=== PATIENT | male | born 1985 | race African-American/Black ===

== ENCOUNTER 2017-07-27 05:15 | Emergency (ER) | payer OTHER ==
[2017-07-27 05:26] VITALS: BP 129/95; PULSE 100; RESP 22; TEMP 98.9; O2SAT 99
[2017-07-27] MEDS ORDERED: ACETAMINOPHEN/CODEINE 300 MG/30 MG TAB PO ONE (05:45)
--- NOTE | 2017-07-27 05:49 | PD ---
HPI Chief Complaint: Psychiatric Symptoms Time Seen by Provider: 05:23 Travel History International Travel<30 days: No Contact w/Intl Traveler<30days: No History of Present Illness HPI Patient is a 31-year-old male presenting to emergency department under Hernandez act for psychiatric evaluation. Patient was transferred from [facility] in [place]. Patient was allegedly making suicidal statements. He was apparently requesting medications to help with the voices at [facility]. Historically patient was on Abilify and Remeron per his report. He denies any suicidal homicidal ideations. He reports that he is been here from [place] for the last 60 days. Patient thinks he was wrongly placed under a Hernandez act. He reports that he went there because of chest pain. He has no complaints of pain at this time. [facility] Past Medical History Psychiatric: Yes Social History Tobacco Use: Yes Allergies-Medications (Allergen,Severity, Reaction): Coded Allergies: No Known Allergies (Unverified , 07/27/17) Reported Meds & Prescriptions Reported Meds & Active Scripts Active No Active Prescriptions or Reported Medications Review of Systems Except as stated in HPI: all other systems reviewed are Neg Psychiatric: No: Suicidal Ideations, Homicidal Ideation Physical Exam Narrative GENERAL: Well-developed, well-nourished, alert -Niuean male. Presenting in no acute distress. SKIN: Warm and dry. HEAD: Atraumatic. Normocephalic. EYES: Pupils equal and round. No scleral icterus. No injection or drainage. ENT: No nasal bleeding or discharge. Mucous membranes pink and moist. NECK: Trachea midline. No JVD. CARDIOVASCULAR: Regular rate and rhythm. RESPIRATORY: No accessory muscle use. Clear to auscultation. Breath sounds equal bilaterally. GASTROINTESTINAL: Abdomen soft, non-tender, nondistended. Hepatic and splenic margins not palpable. MUSCULOSKELETAL: Extremities without clubbing, cyanosis, or edema. No obvious deformities. NEUROLOGICAL: Awake and alert. No obvious cranial nerve deficits. Motor grossly within normal limits. Five out of 5 muscle strength in the arms and legs. Normal speech. PSYCHIATRIC: Somewhat agitated mood and affect; insight and judgment normal. Data Data Last Documented VS Vital Signs Date Time Temp Pulse Resp B/P (MAP) Pulse Ox O2 Delivery O2 Flow Rate FiO2 07/27/17 05:26 98.9 100 22 129/95 (106) 99 Room Air Orders Orders Psych Screen (07/27/17 05:22) Acetamin-Codeine 300-30 Mg (Tylenol-Code (07/27/17 05:45) MDM Medical Decision Making Medical Screen Exam Complete: Yes Emergency Medical Condition: Yes Medical Record Reviewed: Yes Interpretation(s) Vital Signs Date Time Temp Pulse Resp B/P (MAP) Pulse Ox O2 Delivery O2 Flow Rate FiO2 07/27/17 05:26 98.9 100 22 129/95 (106) 99 Room Air Differential Diagnosis Psychosis versus mood disorder versus substance abuse versus schizophrenia versus other Narrative Course Patient is well-appearing 31-year-old male presenting to the emergency department under a Hernandez act for psychiatric evaluation. Patient's vital signs are stable, medical records reviewed. Patient was agitated on arrival, secondary to feeling as if he was wrongly Hernandez acted. Discussed process with patient. Was able to verbally de-escalate the situation. Patient was calm and cooperative. He requested something to drink. He was offered Gatorade and accepted. He requested something for pain in his wrists, Tylenol 3 was ordered. Patient is medically cleared for psychiatric evaluation. Diagnosis Primary Impression: Medical clearance for psychiatric admission Scripts No Active Prescriptions or Reported Meds Condition: Stable Tiffanie Mackenzie July 27, 2017 05:49
[2017-07-27] MEDS ORDERED: REME15TA PO (08:04)
[2017-07-27] MEDS ORDERED: ARIP2 PO (08:04)
--- NOTE | 2017-07-27 08:24 | PD ---
Physical Exam Time Seen by Provider: 08:[address] Holder has evaluated the patient, lifted the Hernandez act and cleared the patient for discharge. Data Data Last Documented VS Vital Signs Date Time Temp Pulse Resp B/P (MAP) Pulse Ox O2 Delivery O2 Flow Rate FiO2 07/27/17 05:26 98.9 100 22 129/95 (106) 99 Room Air Orders Orders Psych Screen (07/27/17 05:22) Acetamin-Codeine 300-30 Mg (Tylenol-Code (07/27/17 05:45) Diet Regular Basic (07/27/17 Breakfast) Diet Regular Basic (07/27/17 Lunch) MDM Supervised Visit with JAGRUTI: No Narrative Course Dr. Holder has evaluated the patient, lifted the Hernandez act and cleared the patient for discharge. Patient contracts safety. Denies suicidal or homicidal ideations. Patient will be provided community resource packet to [facility] for follow-up. Has friends and family for support. Patient was medically cleared by alternate provider prior to psych screening. Patient has been evaluated by psychiatry and and is now cleared for discharge. Diagnosis Primary Impression: Unspecified psychosis Referrals: [facility] (Out patient) [facility] Primary Care Physician Psychiatrist Guera VELASQUEZ Behavior[facility] Patient Instructions: Brief Psychotic Disorder (ED), General Instructions, Mood Disorders (ED) Additional Instruction: Contract safety to your self and others Follow-up with psychiatry Follow-up with primary care provider Follow-up with Lincoln Henson Return to the emergency department immediately with worsening of symptoms Med/Other Pt SpecificInfo: No Change to Meds, No Meds Exist/No RX given Disposition: 01 DISCHARGE HOME Condition: Stable Aiyana Vargas July 27, 2017 08:24
--- NOTE | 2017-07-27 10:56 | PD.PSY.CON ---
Provisional Diagnosis Admission Date [place] I. Alcohol-induced mood disorder, alcohol use disorder, history of depression [place] II. 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 No significant medical he History of Present Illness Service Psychiatry Consult Requested By ER Reason for Consult Patient is under hernandez at Primary Care Physician Unknown HPI The patient was seen this morning at 7 AM The patient is a 31-year-old -Bulgarian man, domiciled in [place], visiting family [place], single, unemployed, with self-reported psychiatric history of depression, 2 previous psychiatric hospitalizations, no previous suicide attempts, the patient using Abilify 15 mg and Remeron 15 mg prescribed by private psychiatrist in [place], no significant medical history, presenting to emergency department under Hernandez act for psychiatric evaluation. Patient was transferred from [facility] in [place]. Patient was allegedly making suicidal statements. He was apparently requesting medications to help with the voices at [facility]. On psychiatric evaluation the patient is irritable , requesting to be discharged. Patient says that he has a court hearing tomorrow and he does want to miss it. He reports that he was having chest pain he was requesting medication for pain, and he mentioned that he wanted to in the context of acute pain. He also reports that he was drunk. At this moment the patient denies suicidal enemas ideation, he denies visual and auditory hallucinations. Is fully oriented 3, clinically sober Review of Systems Constitutional: DENIES: Diaphoretic episodes, Fatigue, Fever, Weight gain, Weight loss, Chills, Dizziness, Change in appetite, Night Sweats Endocrine: DENIES: Heat/cold intolerance, Polydipsia, Polyuria, Polyphagia Ears, nose, mouth, throat: DENIES: Tinnitus, Hearing loss, Vertigo, Nasal discharge, Oral lesions, Throat pain, Hoarseness, Ear Pain, Running Nose, Epistaxis, Sinus Pain, Toothache, Odynophagia Respiratory: DENIES: Apneas, Cough, Snoring, Wheezing, Hemoptysis, Sputum production, Shortness of breath Cardiovascular: DENIES: Chest pain, Palpitations, Syncope, Dyspnea on Exertion , PND, Lower Extremity Edema, Orthopnea, Claudication Gastrointestinal: DENIES: Abdominal pain, Black stools, Bloody stools, Constipation, Diarrhea, Nausea, Vomiting, Difficulty Swallowing, Anorexia Genitourinary: DENIES: Sexual dysfunction, Urinary frequency, Urinary incontinence, Urgency, Hematuria, Dysuria, Nocturia, Penile Discharge, Testicular Pain, Testicular Swelling Musculoskeletal: DENIES: Joint pain, Muscle aches, Stiffness, Joint Swelling, Back pain, Neck pain Integumentary: DENIES: Abnormal pigmentation, Nail changes, Pruritus, Rash Hematologic/lymphatic: DENIES: Bruising, Lymphadenopathy Immunologic/allergic: DENIES: Eczema, Urticaria Neurologic: DENIES: Abnormal gait, Headache, Localized weakness, Paresthesias, Seizures, Speech Problems, Tremor, Poor Balance Psychiatric: DENIES: Anxiety, Confusion, Mood changes, Depression, Hallucinations, Agitation, Suicidal Ideation, Homicidal Ideation, Delusions Past Family Social History Coded Allergies: No Known Allergies (Unverified , 07/27/17) Reported Medications Mirtazapine (Remeron) 15 Mg Tab, 7.5 MG PO HS for Depression Control, #15 TAB 0 Refills 07/27/17 Aripiprazole (Abilify) 2 Mg Tab, 2 MG PO DAILY, #30 TAB 0 Refills 07/27/17 Family Psych History No family psychiatric history Social History Patient was born and raised in [place], is visiting family in [place], unemployed, single, highest level of education is GED Physical Exam No tremors, no EPS, Vital Signs Vital Signs Date Time Temp Pulse Resp B/P (MAP) Pulse Ox O2 Delivery O2 Flow Rate FiO2 07/27/17 05:26 98.9 100 22 129/95 (106) 99 Room Air Mental Status Examination Appearance: Appropriate Consciousness: Alert Orientation: x4 Motor Activity: Normal gait Speech: Unremarkable Language: Adequate Fund of Knowledge: Adequate Attention and Concentration: Adequate Memory: Unremarkable Mood: Appropriate Affect: Appropriate Thought Process & Associations: Intact Thought Content: Appropriate Hallucination Type: None Delusion Type: None Suicidal Ideation: No Suicidal Plan: No Suicidal Intention: No Homicidal Ideation: No Homicidal Plan: No Homicidal Intention: No Insight: Adequate Judgment: Adequate Assessment & Plan Problem List: (1) Alcohol abuse with alcohol-induced mood disorder ICD Codes: F10.14 - Alcohol abuse with alcohol-induced mood disorder Assessment & Plan: On psychiatric evaluation today patient is clinically sober. Patient does not present any evidence of acute, concerning her significant symptomatology of depression, anxiety, clemente or psychosis. The patient denies suicidal and was ideation, he denies visual and auditory hallucinations. He denies SI/HI/VHA. He does not meet criteria for admission. BA will be lifted. Assessment & Plan Estimated LOS: days Héctor Corral MD July 27, 2017 10:56
== END 2017-07-27 10:49 | disposition home or self-care (01) ==
LOC: NEPJ 05:15
DX: F29 Unspecified psychosis not due to a substance or known physiological condition (principal); F10.14 Alcohol abuse with alcohol-induced mood disorder; F32.9 Major depressive disorder, single episode, unspecified; Z72.0 Tobacco use
CPT/HCPCS: 99283

== ENCOUNTER 2017-07-28 19:14 | Emergency (ER) | payer MEDICAID | END 2017-07-28 22:14 | disposition home or self-care (01) | LOC: NEPD 19:14 | DX: F31.9 Bipolar disorder, unspecified (principal); Z76.5 Malingerer [conscious simulation] | CPT/HCPCS: 93005; 99283-25 ==

== ENCOUNTER 2017-07-30 11:51 | Emergency (ER) | payer MEDICAID ==
[~2017-07-30 11:51] MED LIST: ARIP2 PO; REME15TA PO
[2017-07-30 12:00] VITALS: BP 130/70; PULSE 98; RESP 18; TEMP 98.3; O2SAT 100
--- NOTE | 2017-07-30 13:00 | PD ---
HPI Chief Complaint: Psychiatric Symptoms Time Seen by Provider: 12:47 Travel History International Travel<30 days: No Contact w/Intl Traveler<30days: No Traveled to known affect area: No History of Present Illness HPI This patient says that he is having some suicidal thoughts. He does not have a specific plan but has had a vague notion. He reports he has history of schizophrenia and has been off his medications for 2 months. He is here visiting from [place]. This is his third visit this week. 2 days ago was diagnosed as malingering. He had a psych eval on the first visit. He requests another one. He denies physical complaint. Denies history of physical problems. Symptoms moderately severe. No alleviating factors. No exacerbating factors. He arrives with multiple suitcases. PFSH Past Medical History Bipolar Disorder: Yes (mood disorder) Anxiety: Yes Diminished Hearing: No Psychiatric: Yes ?: Not Social History Alcohol Use: Yes (occasionlly) Tobacco Use: Yes Substance Use: No Allergies-Medications (Allergen,Severity, Reaction): Coded Allergies: No Known Allergies (Unverified , 07/30/17) Reported Meds & Prescriptions Reported Meds & Active Scripts Active Reported Remeron (Mirtazapine) 15 Mg Tab 7.5 Mg PO HS Abilify (Aripiprazole) 2 Mg Tab 2 Mg PO DAILY Review of Systems General / Constitutional: No: Fever Eyes: No: Visual changes HENT: No: Headaches Cardiovascular: No: Chest Pain or Discomfort Respiratory: No: Shortness of Breath Gastrointestinal: No: Abdominal Pain Genitourinary: No: Dysuria Musculoskeletal: No: Pain Skin: No Rash Neurologic: No: Weakness Psychiatric: Positive: Depression, Suicidal Ideations, Disorder of Thought, Substance Abuse Endocrine: No: Polydipsia Hematologic/Lymphatic: No: Easy Bruising Physical Exam Narrative GENERAL: Well-nourished, well-developed patient in no apparent distress. SKIN: Focused skin assessment reveals no rash and nodules. Skin is Warm and dry. HEAD: Atraumatic. Normocephalic. EYES: Pupils equal and round. No scleral icterus. No injection or drainage. ENT: No nasal bleeding or discharge. Mucous membranes pink and moist. NECK: Trachea midline. No JVD. CARDIOVASCULAR: Regular rate and rhythm. No murmur appreciated. RESPIRATORY: No accessory muscle use. Clear to auscultation. Breath sounds equal bilaterally. GASTROINTESTINAL: Abdomen soft, non-tender, nondistended. Hepatic and splenic margins not palpable. MUSCULOSKELETAL: No obvious deformities. No clubbing. No cyanosis. No edema. NEUROLOGICAL: Awake and alert. No obvious cranial nerve deficits. Motor grossly within normal limits. Normal speech. PSYCHIATRIC: Depressed mood and flat affect; insight and judgment poor . Data Data Last Documented VS Vital Signs Date Time Temp Pulse Resp B/P (MAP) Pulse Ox O2 Delivery O2 Flow Rate FiO2 07/30/17 12:00 98.3 98 18 130/70 (90) 100 Orders Orders Electrocardiogram (07/30/17 ) Drug Screen, Random Urine (07/30/17 12:52) Complete Blood Count With Diff (07/30/17 12:52) Basic Metabolic Panel (Bmp) (07/30/17 12:52) Psych Screen (07/30/17 12:52) Diet Regular Basic (07/30/17 Dinner) Labs Laboratory Tests Test 07/30/17 13:55 White Blood Count 6.4 TH/MM3 Red Blood Count 4.74 MIL/MM3 Hemoglobin 12.9 GM/DL Hematocrit 38.8 % Mean Corpuscular Volume 81.8 FL Mean Corpuscular Hemoglobin 27.3 PG Mean Corpuscular Hemoglobin Concent 33.3 % Red Cell Distribution Width 14.6 % Platelet Count 269 TH/MM3 Mean Platelet Volume 7.0 FL Neutrophils (%) (Auto) 52.5 % Lymphocytes (%) (Auto) 34.9 % Monocytes (%) (Auto) 8.5 % Eosinophils (%) (Auto) 3.2 % Basophils (%) (Auto) 0.9 % Neutrophils # (Auto) 3.4 TH/MM3 Lymphocytes # (Auto) 2.2 TH/MM3 Monocytes # (Auto) 0.5 TH/MM3 Eosinophils # (Auto) 0.2 TH/MM3 Basophils # (Auto) 0.1 TH/MM3 CBC Comment DIFF FINAL Differential Comment Blood Urea Nitrogen 8 MG/DL Creatinine 1.27 MG/DL Random Glucose 127 MG/DL Calcium Level 8.1 MG/DL Sodium Level 141 MEQ/L Potassium Level 3.6 MEQ/L Chloride Level 110 MEQ/L Carbon Dioxide Level 25.0 MEQ/L Anion Gap 6 MEQ/L Estimat Glomerular Filtration Rate 80 ML/MIN MDM Medical Decision Making Medical Screen Exam Complete: Yes Emergency Medical Condition: Yes Medical Record Reviewed: Yes Differential Diagnosis Depression, adjustment disorder, suicidal ideation Narrative Course I have reviewed the patient's electronic medical record. I reviewed his visit from 2 days ago. No labs were sent in either visit so I have ordered a medical clearance workup I have also ordered psychiatric evaluation. That is why he came in he requests 1. CBC is normal and metabolic profile is normal Patient is medically stable. He is awaiting psychiatric evaluation. Disposition will be per psychiatry. Diagnosis Primary Impression: Depression with suicidal ideation Crow David MD July 30, 2017 13:00
[2017-07-30 14:02] LABS: AUTOMATED NEUTROPHIL # 3.4 TH/MM3 (1.8-7.7); BASOPHIL # 0.1 TH/MM3 (0-0.2); BASOPHIL % 0.9 % (0.0-2.0); EOSINOPHIL # 0.2 TH/MM3 (0-0.4); EOSINOPHIL % 3.2 % (0.0-4.0); HEMATOCRIT 38.8 % (39.0-51.0); HEMOGLOBIN 12.9 GM/DL (13.0-17.0); LYMPH % 34.9 % (9.0-44.0); LYMPHOCYTE # 2.2 TH/MM3 (1.0-4.8); MEAN CELL VOLUME 81.8 FL (80.0-100.0); MEAN CORPUSCULAR HEMOGLOBIN 27.3 PG (27.0-34.0); MEAN CORPUSCULAR HGB CONC 33.3 % (32.0-36.0); MONO % 8.5 % (0.0-8.0); MONOCYTE # 0.5 TH/MM3 (0-0.9); NEUT % 52.5 % (16.0-70.0); PLATELET COUNT 269 TH/MM3 (150-450); RED BLOOD COUNT 4.74 MIL/MM3 (4.50-5.90); RED CELL DISTRIBUTION WIDTH 14.6 % (11.6-17.2); WHITE BLOOD COUNT 6.4 TH/MM3 (4.0-11.0)
[2017-07-30 14:24] LABS: CALCIUM 8.1 MG/DL (8.5-10.1); CREATININE 1.27 MG/DL (0.60-1.30)
--- NOTE | 2017-07-30 15:35 | PD ---
Physical Exam Time Seen by Provider: 15:33 Narrative MARIN Roque has evaluated the patient and cleared the patient for discharge. Data Data Last Documented VS Vital Signs Date Time Temp Pulse Resp B/P (MAP) Pulse Ox O2 Delivery O2 Flow Rate FiO2 07/30/17 12:00 98.3 98 18 130/70 (90) 100 Orders Orders Electrocardiogram (07/30/17 ) Drug Screen, Random Urine (07/30/17 12:52) Complete Blood Count With Diff (07/30/17 12:52) Basic Metabolic Panel (Bmp) (07/30/17 12:52) Psych Screen (07/30/17 12:52) Diet Regular Basic (07/30/17 Dinner) Labs Laboratory Tests Test 07/30/17 13:55 White Blood Count 6.4 TH/MM3 Red Blood Count 4.74 MIL/MM3 Hemoglobin 12.9 GM/DL Hematocrit 38.8 % Mean Corpuscular Volume 81.8 FL Mean Corpuscular Hemoglobin 27.3 PG Mean Corpuscular Hemoglobin Concent 33.3 % Red Cell Distribution Width 14.6 % Platelet Count 269 TH/MM3 Mean Platelet Volume 7.0 FL Neutrophils (%) (Auto) 52.5 % Lymphocytes (%) (Auto) 34.9 % Monocytes (%) (Auto) 8.5 % Eosinophils (%) (Auto) 3.2 % Basophils (%) (Auto) 0.9 % Neutrophils # (Auto) 3.4 TH/MM3 Lymphocytes # (Auto) 2.2 TH/MM3 Monocytes # (Auto) 0.5 TH/MM3 Eosinophils # (Auto) 0.2 TH/MM3 Basophils # (Auto) 0.1 TH/MM3 CBC Comment DIFF FINAL Differential Comment Blood Urea Nitrogen 8 MG/DL Creatinine 1.27 MG/DL Random Glucose 127 MG/DL Calcium Level 8.1 MG/DL Sodium Level 141 MEQ/L Potassium Level 3.6 MEQ/L Chloride Level 110 MEQ/L Carbon Dioxide Level 25.0 MEQ/L Anion Gap 6 MEQ/L Estimat Glomerular Filtration Rate 80 ML/MIN [facility] Supervised Visit with JAGRUTI: No Narrative Course MARIN Roque has evaluated the patient and cleared the patient for discharge. Patient contracts safety. Denies suicidal or homicidal ideations. Patient will be provided community resource packet to [facility] for follow-up. Has friends and family for support. Patient was medically cleared by alternate provider prior to psych screening. Patient has been evaluated by psychiatry and and is now cleared for discharge. Diagnosis Primary Impression: Depression with suicidal ideation Referrals: [facility] (Out patient) [facility] Primary Care Physician Psychiatrist Guera VELASQUEZ Behavior[facility] Patient Instructions: Depression (ED), General Instructions, Suicide Prevention for Adults (ED) Additional Instruction: Contract safety to your self and others Follow-up with psychiatry Follow-up with primary care provider Follow-up with Lincoln Henson Return to the emergency department immediately with worsening of symptoms Med/Other Pt SpecificInfo: No Change to Meds, No Meds Exist/No RX given Disposition: 01 DISCHARGE HOME Condition: Stable Aiyana Vargas July 30, 2017 15:35
--- NOTE | 2017-08-01 08:49 | EKG ---
Date Performed: 07/30/2017 Time Performed: 12:33:36 PTAGE: 31 years EKG: Sinus rhythm NORMAL ECG PREVIOUS TRACING : 07/28/2017 21.50 DOCTOR: Blayne Ibrahim Interpretating Date/Time 08/01/2017 08:44:23
== END 2017-07-30 16:01 | disposition home or self-care (01) ==
LOC: EDBD → NEDAMB 11:51 → NEPJ 16:01
DX: R45.851 Suicidal ideations (principal); F31.9 Bipolar disorder, unspecified; F20.9 Schizophrenia, unspecified; F41.9 Anxiety disorder, unspecified; Z79.899 Other long term (current) drug therapy; Z72.0 Tobacco use
CPT/HCPCS: 80048; 85025; 93005; 99284

== ENCOUNTER 2017-08-06 10:29 | Emergency (ER) | END 2017-08-06 17:59 | disposition home or self-care (01) | DX: F19.959 Other psychoactive substance use, unspecified with psychoactive substance-induced psychotic disorder, unspecified (principal); F31.9 Bipolar disorder, unspecified; Z72.0 Tobacco use; Z79.899 Other long term (current) drug therapy | CPT/HCPCS: 80053; 80307; 85025; 96374; 96375; 99284; J1200; J1630; J2060 ==

== ENCOUNTER 2017-08-13 18:23 | Emergency (ER) | payer MEDICAID, OTHER ==
[~2017-08-13] VITALS: Ht 188 cm; Wt 100.0 kg
[2017-08-13 18:36] VITALS: BP 131/78; PULSE 84; RESP 16; TEMP 98.9; O2SAT 100
--- NOTE | 2017-08-13 19:26 | PD ---
HPI Chief Complaint: Suicide Ideation/Attempt Time Seen by Provider: 19:22 Travel History International Travel<30 days: No Contact w/Intl Traveler<30days: No Traveled to known affect area: No History of Present Illness HPI 32-year-old male with reported history of depression, paranoid schizophrenia, here voluntarily for evaluation of suicidal ideation. Patient is originally from [place] and is here visiting family. He states that he has been off his Remeron and Zoloft. States that his suicidal ideation began this morning. He denies self injury or toxic ingestions today. He does not have a plan. Denies alcohol or illicit drug use. No physical complaints. PFSH Past Medical History Bipolar Disorder: Yes (mood disorder) Anxiety: Yes Diminished Hearing: No Psychiatric: Yes Social History Alcohol Use: Yes (occasionlly) Tobacco Use: Yes Substance Use: No Allergies-Medications (Allergen,Severity, Reaction): Coded Allergies: No Known Allergies (Unverified , 07/30/17) Reported Meds & Prescriptions Reported Meds & Active Scripts Active Reported Zoloft (Sertraline HCl) 25 Mg Tab 30 Mg PO DAILY Remeron (Mirtazapine) 15 Mg Tab 7.5 Mg PO HS Abilify (Aripiprazole) 2 Mg Tab 2 Mg PO DAILY Review of Systems Except as stated in HPI: all other systems reviewed are Neg Physical Exam Narrative GENERAL: Well-developed, well-nourished, awake, alert, wearing sunglasses indoors, flat affect, poor eye contact, no acute distress. SKIN: Focused skin assessment warm/dry. HEAD: Atraumatic. Normocephalic. EYES: Pupils equal and round. No scleral icterus. No injection or drainage. ENT: No nasal bleeding or discharge. Mucous membranes pink and moist. NECK: Trachea midline. No JVD. CARDIOVASCULAR: Regular rate and rhythm. RESPIRATORY: No accessory muscle use. Clear to auscultation. Breath sounds equal bilaterally. GASTROINTESTINAL: Abdomen soft, non-tender, nondistended. Hepatic and splenic margins not palpable. MUSCULOSKELETAL: No obvious deformities. No clubbing. No cyanosis. No edema. NEUROLOGICAL: Awake and alert. No obvious cranial nerve deficits. Motor grossly within normal limits. Normal speech. PSYCHIATRIC: Flat affect. Poor eye contact. Data Data Last Documented VS Vital Signs Date Time Temp Pulse Resp B/P (MAP) Pulse Ox O2 Delivery O2 Flow Rate FiO2 5/24/18 18:36 98.9 84 16 131/78 (95) 100 Orders Orders Complete Blood Count With Diff (08/13/17 19:26) Comprehensive Metabolic Panel (08/13/17 19:26) Thyroid Stimulating Hormone (08/13/17 19:26) Psych Screen (08/13/17 19:26) Drug Screen, Random Urine (08/13/17 19:26) Alcohol (Ethanol) (08/13/17 19:26) Labs Laboratory Tests Test 08/13/17 20:40 White Blood Count 6.2 TH/MM3 Red Blood Count 5.38 MIL/MM3 Hemoglobin 14.5 GM/DL Hematocrit 44.4 % Mean Corpuscular Volume 82.6 FL Mean Corpuscular Hemoglobin 26.9 PG Mean Corpuscular Hemoglobin Concent 32.6 % Red Cell Distribution Width 14.1 % Platelet Count 307 TH/MM3 Mean Platelet Volume 6.9 FL Neutrophils (%) (Auto) 51.9 % Lymphocytes (%) (Auto) 38.6 % Monocytes (%) (Auto) 7.3 % Eosinophils (%) (Auto) 1.4 % Basophils (%) (Auto) 0.8 % Neutrophils # (Auto) 3.2 TH/MM3 Lymphocytes # (Auto) 2.4 TH/MM3 Monocytes # (Auto) 0.5 TH/MM3 Eosinophils # (Auto) 0.1 TH/MM3 Basophils # (Auto) 0.0 TH/MM3 CBC Comment DIFF FINAL Differential Comment Blood Urea Nitrogen 9 MG/DL Creatinine 1.45 MG/DL Random Glucose 89 MG/DL Total Protein 7.3 GM/DL Albumin 3.6 GM/DL Calcium Level 8.9 MG/DL Alkaline Phosphatase 75 U/L Aspartate Amino Transf (AST/SGOT) 24 U/L Alanine Aminotransferase (ALT/SGPT) 25 U/L Total Bilirubin 0.6 MG/DL Sodium Level 139 MEQ/L Potassium Level 4.3 MEQ/L Chloride Level 108 MEQ/L Carbon Dioxide Level 21.8 MEQ/L Anion Gap 9 MEQ/L Estimat Glomerular Filtration Rate 68 ML/MIN Thyroid Stimulating Hormone 3rd Gen 1.830 uIU/ML Ethyl Alcohol Level LESS THAN 3 MG/DL MDM Medical Decision Making Medical Screen Exam Complete: Yes Emergency Medical Condition: Yes Medical Record Reviewed: Yes Differential Diagnosis Depression, suicidal ideation, malingering Narrative Course Basic labs reviewed. The patient is medically cleared for psychiatric eval and disposition by them. Diagnosis Primary Impression: Medical clearance for psychiatric admission Seun Luque MD August 13, 2017 19:25
[2017-08-13] MEDS ORDERED: ZOLO25TA PO (20:47)
[2017-08-13 20:49] LABS: AUTOMATED NEUTROPHIL # 3.2 TH/MM3 (1.8-7.7); BASOPHIL % 0.8 % (0.0-2.0); EOSINOPHIL # 0.1 TH/MM3 (0-0.4); EOSINOPHIL % 1.4 % (0.0-4.0); HEMATOCRIT 44.4 % (39.0-51.0); HEMOGLOBIN 14.5 GM/DL (13.0-17.0); LYMPH % 38.6 % (9.0-44.0); LYMPHOCYTE # 2.4 TH/MM3 (1.0-4.8); MEAN CELL VOLUME 82.6 FL (80.0-100.0); MEAN CORPUSCULAR HEMOGLOBIN 26.9 PG (27.0-34.0); MEAN CORPUSCULAR HGB CONC 32.6 % (32.0-36.0); MEAN PLATELET VOLUME 6.9 FL (7.0-11.0); MONO % 7.3 % (0.0-8.0); MONOCYTE # 0.5 TH/MM3 (0-0.9); NEUT % 51.9 % (16.0-70.0); PLATELET COUNT 307 TH/MM3 (150-450); RED BLOOD COUNT 5.38 MIL/MM3 (4.50-5.90); RED CELL DISTRIBUTION WIDTH 14.1 % (11.6-17.2); WHITE BLOOD COUNT 6.2 TH/MM3 (4.0-11.0)
[2017-08-13 21:13] LABS: ALT (GPT) 25 U/L (12-78)
[2017-08-13 21:23] LABS: ALBUMIN 3.6 GM/DL (3.4-5.0); ALKALINE PHOSPHATASE 75 U/L (45-117); AST (GOT) 24 U/L (15-37); BICARBONATE 21.8 MEQ/L (21.0-32.0); BLOOD UREA NITROGEN 9 MG/DL (7-18); CALCIUM 8.9 MG/DL (8.5-10.1); CHLORIDE 108 MEQ/L (98-107); CREATININE 1.45 MG/DL (0.60-1.30); GLOMERULAR FILTRATION RATE 68 ML/MIN (>89); GLUCOSE,RANDOM 89 MG/DL (74-106); SODIUM (NA) 139 MEQ/L (136-145); TOTAL BILIRUBIN ADULT 0.6 MG/DL (0.2-1.0); TOTAL PROTEIN 7.3 GM/DL (6.4-8.2)
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
--- NOTE | 2017-08-14 12:42 | PD.PSY.CON ---
Provisional Diagnosis Admission Date [place] I. Conscious simulation with secondary gain of use in the hospital as a detention, self-reported schizophrenia, depression, cocaine and amphetamines use disorder, [place] II. Antisocial personality disorder History of Present Illness Service Psychiatry Consult Requested By ER Reason for Consult Psychiatric eval Primary Care Physician No Primary Care Physician HPI The patient is 32-year-old -Northern Irish man, homeless, single, unemployed, from [place], with psychiatric history of self-reported schizophrenia, depression previous psychiatric hospitalizations, cocaine and amphetamines use disorder, antisocial personality disorder, numerous ER visit with very vague and inconsistent psychiatric complaints, history of aggressive behavior, he was hospitalized in [facility] in July 2017, but was discharged next due to proactive and premeditated aggressive behavior with the staff, no significant medical history , who is here voluntarily for evaluation of suicidal ideation. Patient is originally from [place] and is here visiting family, he carries all his backs with. Patient reports that he was admitted in [facility] for 3 days. He was discharged yesterday with the prescriptions, "but they asked me to come here to [place] to get the medication" he states that the prescriptions are for Remeron and Zoloft. Patient reports that he has been suicidal for the last 10 years. He says that he needs help to go back to [place]. Patient was found deeply sleeping in his bed. At this moment he denies suicidal enemas ideation, he denies visual and auditory hallucinations. Review of Systems Constitutional: DENIES: Diaphoretic episodes, Fatigue, Fever, Weight gain, Weight loss, Chills, Dizziness, Change in appetite, Night Sweats Endocrine: DENIES: Heat/cold intolerance, Polydipsia, Polyuria, Polyphagia Eyes: DENIES: Blurred vision, Diplopia, Eye inflammation, Eye pain, Vision loss , Photosensitivity, Double Vision Ears, nose, mouth, throat: DENIES: Tinnitus, Hearing loss, Vertigo, Nasal discharge, Oral lesions, Throat pain, Hoarseness, Ear Pain, Running Nose, Epistaxis, Sinus Pain, Toothache, Odynophagia Respiratory: DENIES: Apneas, Cough, Snoring, Wheezing, Hemoptysis, Sputum production, Shortness of breath Cardiovascular: DENIES: Chest pain, Palpitations, Syncope, Dyspnea on Exertion , PND, Lower Extremity Edema, Orthopnea, Claudication Gastrointestinal: DENIES: Abdominal pain, Black stools, Bloody stools, Constipation, Diarrhea, Nausea, Vomiting, Difficulty Swallowing, Anorexia Genitourinary: DENIES: Sexual dysfunction, Urinary frequency, Urinary incontinence, Urgency, Hematuria, Dysuria, Nocturia, Penile Discharge, Testicular Pain, Testicular Swelling Musculoskeletal: DENIES: Joint pain, Muscle aches, Stiffness, Joint Swelling, Back pain, Neck pain Integumentary: DENIES: Abnormal pigmentation, Nail changes, Pruritus, Rash Hematologic/lymphatic: DENIES: Bruising, Lymphadenopathy Immunologic/allergic: DENIES: Eczema, Urticaria Psychiatric: DENIES: Anxiety, Confusion, Mood changes, Depression, Hallucinations, Agitation, Suicidal Ideation, Homicidal Ideation, Delusions Past Family Social History Coded Allergies: No Known Allergies (Unverified , 07/30/17) Reported Medications Sertraline (Zoloft) 25 Mg Tab, 30 MG PO DAILY, #30 TAB 0 Refills 08/13/17 Mirtazapine (Remeron) 15 Mg Tab, 7.5 MG PO HS for Depression Control, #15 TAB 0 Refills 07/27/17 Aripiprazole (Abilify) 2 Mg Tab, 2 MG PO DAILY, #30 TAB 0 Refills 07/27/17 Physical Exam Vital Signs Vital Signs Date Time Temp Pulse Resp B/P (MAP) Pulse Ox O2 Delivery O2 Flow Rate FiO2 08/13/17 18:36 98.9 84 16 131/78 (95) 100 Lab Results Test 08/13/17 20:40 08/13/17 21:40 White Blood Count 6.2 TH/MM3 Red Blood Count 5.38 MIL/MM3 Hemoglobin 14.5 GM/DL Hematocrit 44.4 % Mean Corpuscular Volume 82.6 FL Mean Corpuscular Hemoglobin 26.9 PG Mean Corpuscular Hemoglobin Concent 32.6 % Red Cell Distribution Width 14.1 % Platelet Count 307 TH/MM3 Mean Platelet Volume 6.9 FL Neutrophils (%) (Auto) 51.9 % Lymphocytes (%) (Auto) 38.6 % Monocytes (%) (Auto) 7.3 % Eosinophils (%) (Auto) 1.4 % Basophils (%) (Auto) 0.8 % Neutrophils # (Auto) 3.2 TH/MM3 Lymphocytes # (Auto) 2.4 TH/MM3 Monocytes # (Auto) 0.5 TH/MM3 Eosinophils # (Auto) 0.1 TH/MM3 Basophils # (Auto) 0.0 TH/MM3 CBC Comment DIFF FINAL Differential Comment Blood Urea Nitrogen 9 MG/DL Creatinine 1.45 MG/DL Random Glucose 89 MG/DL Total Protein 7.3 GM/DL Albumin 3.6 GM/DL Calcium Level 8.9 MG/DL Alkaline Phosphatase 75 U/L Aspartate Amino Transf (AST/SGOT) 24 U/L Alanine Aminotransferase (ALT/SGPT) 25 U/L Total Bilirubin 0.6 MG/DL Sodium Level 139 MEQ/L Potassium Level 4.3 MEQ/L Chloride Level 108 MEQ/L Carbon Dioxide Level 21.8 MEQ/L Anion Gap 9 MEQ/L Estimat Glomerular Filtration Rate 68 ML/MIN Thyroid Stimulating Hormone 3rd Gen 1.830 uIU/ML Ethyl Alcohol Level LESS THAN 3 MG/DL Urine Opiates Screen NEG Urine Barbiturates Screen NEG Urine Amphetamines Screen NEG Urine Benzodiazepines Screen NEG Urine Cocaine Screen NEG Urine Cannabinoids Screen NEG Mental Status Examination Appearance: Appropriate Consciousness: Alert Orientation: x4 Motor Activity: Normal gait Speech: Unremarkable Language: Adequate Fund of Knowledge: Adequate Attention and Concentration: Adequate Memory: Unremarkable Mood: Appropriate Affect: Appropriate Thought Process & Associations: Intact Thought Content: Appropriate Hallucination Type: None Delusion Type: None Suicidal Ideation: No Suicidal Plan: No Suicidal Intention: No Homicidal Ideation: No Homicidal Plan: No Homicidal Intention: No Insight: Adequate Judgment: Adequate Assessment & Plan Problem List: (1) Antisocial personality disorder in adult ICD Codes: F60.2 - Antisocial personality disorder Assessment & Plan: Patient has been seen today for psychiatric evaluation. The patient does not present any neuropsychiatric symptoms that require an immediate psychiatric intervention at this moment. He was just discharged from [facility] after 3 days hospitalization. He was given prescriptions an outpatient appointments. He says that he was asked in [facility] to come to [place] to get the medication, which I doubt and I think is just a plan for the patient to come in to spend the night here in the hospital. Once he hit the hospital he also reported suicidal ideation, with no active plan, but he is denying suicidal ideation at this moment. This is a patient who has being in this ER numerous times in the last 4 weeks, he was even hospitalized in [facility] where he had to be discharge next day due to his antisocial behavior. Patient is for [place], he has been traveling with also his bags in every ER visit requesting to be sent back to [place]. He does not meet criteria for involuntary psychiatric admission. I have communicated with risk management in the house to try to make a plan to help this patient with his goal and to avoid his multiple ER visits. Brief supportive psychotherapy provided. Patient is to be discharged. Continue outpatient care in [facility]. Assessment & Plan Estimated LOS: days Héctor Corral MD August 14, 2017 12:42
== END 2017-08-14 09:39 | disposition home or self-care (01) ==
LOC: NEPD 18:23 → NEDAMB 08-14 09:39
DX: F60.2 Antisocial personality disorder (principal); F20.0 Paranoid schizophrenia; F31.9 Bipolar disorder, unspecified; F41.9 Anxiety disorder, unspecified; Z79.899 Other long term (current) drug therapy; Z72.0 Tobacco use
CPT/HCPCS: 80053; 80307; 84443; 85025; 99283

== ENCOUNTER 2017-08-18 13:29 | Emergency (ER) | payer MEDICAID, OTHER ==
[~2017-08-18] VITALS: Ht 188 cm; Wt 100.0 kg
[~2017-08-18 13:29] MED LIST changes: +ZOLO25TA PO
[2017-08-18 14:08] VITALS: BP 119/75; PULSE 107; RESP 18; TEMP 97.7; O2SAT 98
[2017-08-18 14:17] VITALS: BP 135/76; PULSE 100; RESP 15; TEMP 98.1; O2SAT 95
--- NOTE | 2017-08-18 14:20 | PD ---
HPI Chief Complaint: Suicide Ideation/Attempt Time Seen by Provider: 14:19 Travel History International Travel<30 days: No Contact w/Intl Traveler<30days: No Traveled to known affect area: No History of Present Illness HPI 32-year-old male came to the emergency room complaining of chest pain, suicidal ideations which this patient has been here in this emergency room multiple times lately. Patient has recently moved from [place] it seems like and in the past 1 month has been here at least 6-8 time with similar complaints. He has been seen by psychiatry and has been diagnosed with antisocial personality disorder. He has polysubstance abuse. He has been asked to follow-up in [facility] which it does not seem like he has done. Vital signs are stable. Patient describes the pain to be constant and sharp. No aggravating or relieving factors identified. No radiation of the pain. PFSH Past Medical History Narrative Medical List of his past medical, surgical, social and family history is reviewed from the nursing note Bipolar Disorder: Yes (mood disorder) Anxiety: Yes Diminished Hearing: No Psychiatric: Yes Schizophrenia: Yes (PARANOID) Social History Alcohol Use: Yes (OCC) Tobacco Use: Yes Substance Use: No Allergies-Medications (Allergen,Severity, Reaction): Coded Allergies: No Known Allergies (Unverified , 08/18/17) Comments No known drug allergies. Reported Meds & Prescriptions Reported Meds & Active Scripts Active Reported Zoloft (Sertraline HCl) 25 Mg Tab 30 Mg PO DAILY Remeron (Mirtazapine) 15 Mg Tab 7.5 Mg PO HS Abilify (Aripiprazole) 2 Mg Tab 2 Mg PO DAILY Narrative Medication List of his home medications reviewed from the nursing note. Review of Systems Except as stated in HPI: all other systems reviewed are Neg Cardiovascular: Positive: Chest Pain or Discomfort Physical Exam Narrative GENERAL: Awake, alert, no obvious distress SKIN: Focused skin assessment warm/dry. HEAD: Atraumatic. Normocephalic. EYES: Pupils equal and round. No scleral icterus. No injection or drainage. ENT: No nasal bleeding or discharge. Mucous membranes pink and moist. NECK: Trachea midline. No JVD. CARDIOVASCULAR: Regular rate and rhythm. No murmur appreciated. RESPIRATORY: No accessory muscle use. Clear to auscultation. Breath sounds equal bilaterally. GASTROINTESTINAL: Abdomen soft, non-tender, nondistended. Hepatic and splenic margins not palpable. MUSCULOSKELETAL: No obvious deformities. No clubbing. No cyanosis. No edema. NEUROLOGICAL: Awake and alert. No obvious cranial nerve deficits. Motor grossly within normal limits. Normal speech. PSYCHIATRIC: Appropriate mood and affect; insight and judgment normal. Data Data Last Documented VS Vital Signs Date Time Temp Pulse Resp B/P (MAP) Pulse Ox O2 Delivery O2 Flow Rate FiO2 08/18/17 16:00 97.8 78 16 130/81 (97) 99 08/18/17 14:17 Room Air Orders Orders Complete Blood Count With Diff (08/18/17 14:25) Electrocardiogram (08/18/17 ) Ed Discharge Order (08/18/17 15:24) Labs Laboratory Tests Test 08/18/17 15:05 White Blood Count 9.5 TH/MM3 Red Blood Count 5.27 MIL/MM3 Hemoglobin 14.5 GM/DL Hematocrit 42.9 % Mean Corpuscular Volume 81.3 FL Mean Corpuscular Hemoglobin 27.5 PG Mean Corpuscular Hemoglobin Concent 33.8 % Red Cell Distribution Width 14.5 % Platelet Count 310 TH/MM3 Mean Platelet Volume 7.2 FL Neutrophils (%) (Auto) 61.0 % Lymphocytes (%) (Auto) 25.4 % Monocytes (%) (Auto) 10.0 % Eosinophils (%) (Auto) 3.2 % Basophils (%) (Auto) 0.4 % Neutrophils # (Auto) 5.8 TH/MM3 Lymphocytes # (Auto) 2.4 TH/MM3 Monocytes # (Auto) 1.0 TH/MM3 Eosinophils # (Auto) 0.3 TH/MM3 Basophils # (Auto) 0.0 TH/MM3 CBC Comment DIFF FINAL Differential Comment MDM Medical Decision Making Medical Screen Exam Complete: Yes Emergency Medical Condition: Yes Medical Record Reviewed: Yes Interpretation(s) Twelve-lead EKG was reviewed by me. Normal sinus rhythm, normal axis, nonspecific ST-T wave changes. Heart rate of 94 bpm. Differential Diagnosis Malingering, acute on chronic chest pain, substance, antisocial personality Narrative Course 3:27 PM given his normal EKG and his past record I am comfortable discharging him home. 4 p.m. during the discharge patient mentions that he is ringing on his ring finger and the right hand was stuck and he wanted that to be taken out. This was cut with a ring cutter by the nurse. Procedures EKG Prior to Arrival: No Diagnosis Primary Impression: Malingering Additional Impression: Antisocial personality disorder Disposition: 01 DISCHARGE HOME Condition: Stable Ap Mendez MD August 18, 2017 14:20
[2017-08-18 16:00] VITALS: BP 130/81; TEMP 97.8
[2017-08-18 16:01] LABS: AUTOMATED NEUTROPHIL # 5.8 TH/MM3 (1.8-7.7); BASOPHIL % 0.4 % (0.0-2.0); EOSINOPHIL # 0.3 TH/MM3 (0-0.4); EOSINOPHIL % 3.2 % (0.0-4.0); HEMATOCRIT 42.9 % (39.0-51.0); HEMOGLOBIN 14.5 GM/DL (13.0-17.0); LYMPH % 25.4 % (9.0-44.0); LYMPHOCYTE # 2.4 TH/MM3 (1.0-4.8); MEAN CELL VOLUME 81.3 FL (80.0-100.0); MEAN CORPUSCULAR HEMOGLOBIN 27.5 PG (27.0-34.0); MEAN CORPUSCULAR HGB CONC 33.8 % (32.0-36.0); MEAN PLATELET VOLUME 7.2 FL (7.0-11.0); PLATELET COUNT 310 TH/MM3 (150-450); RED BLOOD COUNT 5.27 MIL/MM3 (4.50-5.90); RED CELL DISTRIBUTION WIDTH 14.5 % (11.6-17.2); WHITE BLOOD COUNT 9.5 TH/MM3 (4.0-11.0)
--- NOTE | 2017-08-19 14:17 | EKG ---
Date Performed: 08/18/2017 Time Performed: 14:53:06 PTAGE: 32 years EKG: Sinus rhythm NONSPECIFIC T-WAVE ABNORMALITY BORDERLINE ECG PREVIOUS TRACING : 07/30/2017 12.33 DOCTOR: Carlos Ponce Interpretating Date/Time 08/19/2017 14:16:38
== END 2017-08-18 16:00 | disposition home or self-care (01) ==
LOC: NEPD 13:29
DX: F60.2 Antisocial personality disorder (principal); R07.9 Chest pain, unspecified; Z72.0 Tobacco use; Z76.5 Malingerer [conscious simulation]
CPT/HCPCS: 85025; 93005; 99284

== ENCOUNTER 2017-08-19 00:47 | Emergency (ER) | payer MEDICAID, OTHER ==
[~2017-08-19] VITALS: Ht 190.5 cm; Wt 105.0 kg
[2017-08-19 01:48] VITALS: BP 132/78; PULSE 79; RESP 18; TEMP 97.9; O2SAT 100
--- NOTE | 2017-08-19 03:21 | PD ---
HPI Chief Complaint: Psychiatric Symptoms Time Seen by Provider: 01:17 Travel History International Travel<30 days: No Contact w/Intl Traveler<30days: No Traveled to known affect area: No History of Present Illness HPI Patient is a 32-year-old male presenting to the emergency department under Hernandez act. Patient stated that he suffers from schizophrenia and has not taken his medicine and 800 years. He then stated he has been having delusional thoughts and has felt paranoid. He also feels agitated and suicidal. Patient was brought in from outside of [facility] this evening. Patient has no physical complaints at this time. He does endorse drug use. Symptom onset is unknown. PFSH Past Medical History Bipolar Disorder: Yes (mood disorder) Anxiety: Yes Diminished Hearing: No Psychiatric: Yes Schizophrenia: Yes (PARANOID) Social History Alcohol Use: Yes (OCC) Tobacco Use: Yes Substance Use: Yes Allergies-Medications (Allergen,Severity, Reaction): Coded Allergies: No Known Allergies (Unverified , 08/18/17) Reported Meds & Prescriptions Reported Meds & Active Scripts Active Reported Zoloft (Sertraline HCl) 25 Mg Tab 30 Mg PO DAILY Remeron (Mirtazapine) 15 Mg Tab 7.5 Mg PO HS Abilify (Aripiprazole) 2 Mg Tab 2 Mg PO DAILY Review of Systems Except as stated in HPI: all other systems reviewed are Neg Psychiatric: Positive: Suicidal Ideations, Disorder of Thought, Mood Disorder, Substance Abuse Physical Exam Narrative GENERAL: Well-developed, well-nourished, alert male. Presenting in no acute distress. SKIN: Warm and dry. HEAD: Atraumatic. Normocephalic. EYES: Pupils equal and round. No scleral icterus. No injection or drainage. ENT: No nasal bleeding or discharge. Mucous membranes pink and moist. NECK: Trachea midline. No JVD. CARDIOVASCULAR: Regular rate and rhythm. RESPIRATORY: No accessory muscle use. Clear to auscultation. Breath sounds equal bilaterally. GASTROINTESTINAL: Abdomen soft, non-tender, nondistended. Hepatic and splenic margins not palpable. MUSCULOSKELETAL: Extremities without clubbing, cyanosis, or edema. No obvious deformities. NEUROLOGICAL: Awake and alert. No obvious cranial nerve deficits. Motor grossly within normal limits. Five out of 5 muscle strength in the arms and legs. Normal speech. PSYCHIATRIC: Agitated mood and affect; insight and judgment normal. Data Data Last Documented VS Vital Signs Date Time Temp Pulse Resp B/P (MAP) Pulse Ox O2 Delivery O2 Flow Rate FiO2 08/19/17 01:48 97.9 79 18 132/78 (96) 100 Room Air Orders Orders Psych Screen (08/19/17 01:00) MDM Medical Decision Making Medical Screen Exam Complete: Yes Emergency Medical Condition: Yes Medical Record Reviewed: Yes Interpretation(s) Vital Signs Date Time Temp Pulse Resp B/P (MAP) Pulse Ox O2 Delivery O2 Flow Rate FiO2 08/19/17 01:48 97.9 79 18 132/78 (96) 100 Room Air Differential Diagnosis Mood disorder versus substance abuse versus malingering versus schizophrenia versus bipolar disorder versus other Narrative Course Patient is a 32-year-old male presenting for psych eval under a Hernandez act. Patient has been to this emergency department several times, most recently was on the where he was diagnosed with malingering and discharged. He has had multiple presentations reporting suicidal ideations. Labs reviewed from previous admission. Mental health screening discussed with the patient. Psychiatric screen ordered. Patient is medically cleared for psych eval again. Diagnosis Primary Impression: Medical clearance for psychiatric admission Condition: Stable Gurdeep,Tiffanie UFNES August 19, 2017 03:21
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
--- NOTE | 2017-08-19 09:49 | PD ---
Physical Exam Date Seen by Provider: August 19, 2017 Time Seen by Provider: 09:47 Narrative Patient was seen and evaluated by the psychiatrist, Dr. Bonilla, and Hernandez act was lifted. He is stable for discharge home. The patient has been seen multiple times this month in the emergency department. He has been previously diagnosed with malingering. Data Data Last Documented VS Vital Signs Date Time Temp Pulse Resp B/P (MAP) Pulse Ox O2 Delivery O2 Flow Rate FiO2 08/19/17 01:48 97.9 79 18 132/78 (96) 100 Room Air Orders Orders Psych Screen (08/19/17 01:00) Diet Regular Basic (08/19/17 Breakfast) MDM Supervised Visit with JAGRUTI: No Diagnosis Primary Impression: Medical clearance for psychiatric admission Referrals: Psychiatrist Patient Instructions: General Instructions, Medical Clearance for Psychiatric Care (ED) Med/Other Pt SpecificInfo: No Change to Meds Disposition: 01 DISCHARGE HOME Condition: Stable America Zuniga MARIN August 19, 2017 09:49
== END 2017-08-19 10:54 | disposition home or self-care (01) ==
LOC: NEPJ 00:47
DX: F20.0 Paranoid schizophrenia (principal); F60.2 Antisocial personality disorder; Z76.5 Malingerer [conscious simulation]
CPT/HCPCS: 99284

== ENCOUNTER 2018-03-14 08:24 | Inpatient (IN) ==
[2018-03-14 09:34] LABS: Hemoglobin 13.7 gm/dL (13.0-17.0); Mean Corpuscular HGB Conc 34.3 % (32.0-36.0); Mean Corpuscular Hemoglobin 28.9 pg (27.0-34.0); Mean Corpuscular Volume 84.1 fL (80.0-100.0); Mean Platelet Volume 7.2 fL (7.0-11.0); Platelet Count 268 th/mm3 (150-450); Red Blood Count 4.76 mil/mm3 (4.50-5.90); White Blood Count 6.6 th/mm3 (4.0-11.0)
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
[2018-03-14 10:03] LABS: Alanine Aminotransferase 29 U/L (12-78)
[2018-03-14 10:05] LABS: Alkaline Phosphatase 71 U/L (45-117); Total Protein 7.3 g/dL (6.4-8.2)
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
[2018-03-14 10:28] LABS: Albumin 3.5 g/dL (3.4-5.0); Anion Gap 8 meq/L (5-15); Aspartate Aminotransferase 29 U/L (15-37); Blood Urea Nitrogen 11 mg/dL (7-18); Calcium 8.6 mg/dL (8.5-10.1); Carbon Dioxide 24.5 meq/L (21.0-32.0); Chloride 109 meq/L (98-107); Glomerular Filtration Rate 76 mL/min (>89); Glucose,Random 85 mg/dL (74-106); Potassium 3.6 meq/L (3.5-5.1); Sodium 141 meq/L (136-145)
[2018-03-14 10:47] LABS: Amphetamine Screen,Urine Neg (Neg); Barbiturate Screen,Urine Neg (Neg); Cannabinoid Screen,Urine Neg (Neg); Cocaine Screen,Urine Neg (Neg)
[2018-03-14 10:49] LABS: Bilirubin,Urine Negative (Negative); Clarity,Urine Clear (Clear); Color,Urine Yellow (Yellw/Straw); Glucose,Urine (UA) Negative (Negative); Leukocyte Esterase,Urine Negative (Negative); Mucus,Urine Few /lpf (Occasional); Nitrite,Urine Negative (Negative); Opiate Screen,Urine Neg (Neg); Specific Gravity,Urine 1.028 (1.002-1.035); Squamous Epithelial Cell,Urine <1 /hpf (0-5)
--- NOTE | 2018-03-14 15:18 | ED ---
HPI - Psych - General Source: patient Limitations: no limitations - History of Present Illness complaint: suicidal ideation Relieving factors: none Exacerbating factors: none Associated psychiatric symptoms: auditory hallucinations If self harm: has plan - General Chief Complaint: Psychiatric Symptoms Stated Complaint: Psych Eval/DBPD Time Seen by Provider: 03/14/18 09:25 - History of Present Illness HPI Narrative: Patient is a 33 y/o , single male with two children who presents to the Emergency Department under a Hernandez Act placed by [employer]. The Hernandez Act states, " Teddy advised that he wanted to end his lie and run into traffic. Teddy was taken into custody." Urine drug screen is negative. Per nursing report initially presented to [facility] and was discharged. Patient is in room J 105 of the Emergency Department and is in hospital [facility]. He is alert and oriented x 3. He is well kept and looks his stated age. He endorses auditory hallucinations that are telling him to kill himself. Denies any visual or tactile hallucinations. States that he is under the care of Dr. Murillo at the [facility] in [place]. When asked if this is one of [facility] facilities he was unsure. He states that he has been diagnosed with Paranoid Schizophrenia and is prescribed: Abilify 15 mg qhs ; Remeron 30 mg qhs and Zoloft 25 mg qd. He states that he has been out of medications for two weeks and the symptoms have increased. He endorses no sleep for several days which has caused him to walk into traffic. Fund of Knowledge is good. Motor and gait is normal. He has good insight to his mental health and states that he has been at the Crisis Center and [facility] for the same in the past when he has run out of medications. Medical / Mental Health: History of asthma and chronic shoulder pain. Prescribed an inhaler but no funds to obtain the medication. Under the care of Dr. Murillo in [place] for mental health. Surgeries: bilateral rotator cuff repair. No allergies. Family: Single, two children ( son , 7 years old ) and ( daughter , 6 years old ) and they both live in [place]. His family lives in [place]. Alcohol/Drugs/Education: Completed the 11th grade. 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 Does not receive SSI/SSDI. Does not receive food stamps. Smokes 1/2 ppd. No history of alcohol or drugs. He is currently homeless. Patient endorses that he continues to feel suicidal. He states that he does well when on his medications, but that he has been out of medications for two weeks due to lack of finances. He states that he ran in front of a car yesterday and injured his right ankle, x-ray indicated no fracture. He states he is homeless and does not want to live anymore. He states that he is tired and just wants to give up. He will not contract for safety. Patient is at moderate risk for self harm. He endorses suicidal ideation with a plan to take his life. When asked if he lives for his children, he states , "no they would be better off without me." Initial contact has been make with [facility] to request a bed in the inpatient [facility] [place]. Based on patient's presentation will request transfer to [facility] under a Hernandez Act. Dx: Paranoid Schizophrenia (Nicolette Menendez) - Related Data Home Medications Medication Instructions Recorded Confirmed aripiprazole [Abilify] 15 mg PO DAILY 03/14/18 03/14/18 mirtazapine [Remeron] 30 mg PO DAILY NEB 03/14/18 03/14/18 sertraline [Zoloft] 25 mg PO DAILY 03/14/18 03/14/18 Allergies Allergy/AdvReac Type Severity Reaction Status Date / Time No Known Allergies Allergy Verified 03/14/18 09:25 Review of Systems All other systems reviewed negative except as stated in HPI Constitutional: Reports body ache(s) Comments: general pain , including left shoulder pain and right ankle pain (Nicolette Menendez) PMFSH - History History Provided By: Patient - Medical History Medical History: Medical History (Last Reviewed 03/10/18 @ 01:11 by KRISTYN Disla) Schizophrenia - Tobacco History Second Hand Smoke Exposure: No Tobacco Use In Past 30 Days: No Smoking Status: Unknown if ever smoked Tobacco Type: Cigarettes - Alcohol History How Often Do You Have a Drink Containing Alcohol: Unable to Obtain - Substance Use History Substance History: Active Abuse - Travel History Recent Travel in the USA Within the Last 8 Weeks: No Recent Travel Out of the Country Within the Last 8 Weeks: No - Immunization History Tetanus Immunization: <5 Years Tetanus Immunization Year if Known: 2018 Psychiatric History - Psychiatric History Psychiatric Treatment History: History of Psychiatric Treatment (Prior [facility] admission ) - Psychiatric History Under the care of Dr. Murillo. Prescribed Abilify 15 mg; Remeron 30 mg and Zoloft 25 mg. (Nicolette Menendez) Physical Exam - General Limitations: no limitations - Head Head exam: atraumatic - Eye Eye exam: Present: normal appearance - ENT ENT exam: Present: normal exam - Neck Neck exam: Present: normal inspection - Chest Chest inspection: Present: normal inspection - Neurological Exam Neurological exam: Present: alert, oriented X3 - Expanded Neurological Exam Patient oriented to: Present: person, place, time - Other Other exam information: left shoulder pain and right ankle pain (Nicolette Menendez) Mental Status Examination Appearance: Appropriate Consciousness: Alert Orientation: Person, Place, Situation Motor Activity: Normal gait Speech: Unremarkable Language: Adequate Fund of Knowledge: Adequate Attention and Concentration: Adequate, Easily distracted Memory: Recent (intact), Remote (intact) Mood: Sad Affect: Flat, Blunt Thought Process & Associations: Disorganized Thought Content: Hallucinations (auditory command hallucinations - has been off medications for two weeks ) Hallucination Type: Auditory Delusion Type: Paranoid Suicidal Ideation: Yes (plans to jump in front of a car) Suicidal Plan: Yes Homicidal Ideation: No Homicidal Plan: No Homicidal Intention: No Insight: Poor Judgment: Poor Initial Documented Vital Signs Temperature 97.8 F 03/14/18 09:40 Pulse Rate 66 03/14/18 09:40 Respiratory Rate 16 03/14/18 09:40 Blood Pressure 130/91 H 03/14/18 09:40 Pulse Oximetry 98 03/14/18 09:40 Last Documented Vital Signs Temperature 97.8 F 03/14/18 09:40 Pulse Rate 66 03/14/18 09:40 Respiratory Rate 16 03/14/18 09:40 Blood Pressure 130/91 H 03/14/18 09:40 Pulse Oximetry 98 03/14/18 09:40 MDM - Psych - Diagnosis (1) Paranoid schizophrenia Code(s): F20.0 - Paranoid schizophrenia Status: Acute - Differential Diagnosis Likely: chronic schizophrenia - Medical Records Attestation: I reviewed the patient's medical records. - Lab Data Attestation: I reviewed the patient's lab results. Result diagrams: 03/14/18 09:03 03/14/18 09:03 - [facility] Narrative Medical decision making narrative: Patient is a 33 year old homeless male with a history of Schizophrenia. He ran out of medication two weeks ago. He states that the voices have increase with intensity and that they are now command telling him to harm himself. He attempted to throw himself in front of a car yesterday and injured his right ankle. He continues to have thoughts of self harm and expresses hopelessness. He will not contract for safety . Based on patient's presentation and suicidal ideations it is the recommendation of this provider to admit for stabilization and medication management. Contact has been made with the Crisis Center at [facility] to determine if their is bed availability. Patient is at moderate risk for decompensation. (Nicolette Menendez) - Lab Data Lab Results 03/14/18 03/14/18 03/14/18 Range/Units 08:55 08:55 09:03 WBC 6.6 (4.0-11.0) th/mm3 RBC 4.76 (4.50-5.90) mil/mm3 Hgb 13.7 (13.0-17.0) gm/dL Hct 40.0 (39.0-51.0) % MCV 84.1 (80.0-100.0) fL MCH 28.9 (27.0-34.0) pg MCHC 34.3 (32.0-36.0) % RDW 15.0 (11.6-17.2) % Plt Count 268 (150-450) th/mm3 MPV 7.2 (7.0-11.0) fL Sodium (136-145) meq/L Potassium (3.5-5.1) meq/L Chloride (98-107) meq/L Carbon Dioxide (21.0-32.0) meq/L Anion Gap (5-15) meq/L BUN (7-18) mg/dL Creatinine (0.60-1.30) mg/dL Estimated GFR (>89) mL/min Random Glucose (74-106) mg/dL Calcium (8.5-10.1) mg/dL Total Bilirubin (0.2-1.0) mg/dL AST (15-37) U/L ALT (12-78) U/L Alkaline Phosphatase (45-117) U/L Total Protein (6.4-8.2) g/dL Albumin (3.4-5.0) g/dL Urine Color Yellow (Yellw/Straw) Urine Clarity Clear (Clear) Urine pH 5.0 (5.0-8.5) Ur Specific [place] 1.028 (1.002-1.035) Urine Protein Negative (Neg-Trace) mg/dL Urine Glucose (UA) Negative (Negative) mg/dL Urine Ketones Negative (Negative) mg/dL Urine Occult Blood Small H (Negative) Urine Nitrate Negative (Negative) Urine Bilirubin Negative (Negative) Urine Urobilinogen Less than 2 (Less than 2) mg/dL Ur Leukocyte Esterase Negative (Negative) Urine RBC 1 (0-3) /hpf Urine WBC 1 (0-5) /hpf Ur Squamous Epith Cells <1 (0-5) /hpf Urine Mucus Few H (Occasional) /lpf Micro UA Comment Culture not ind Ur Microscopic Review Not Reportable Urine Culture Comments Culture not ind Urine Opiates Screen Neg (Neg) Ur Barbiturates Screen Neg (Neg) Ur Amphetamines Screen Neg (Neg) U Benzodiazepines Scrn Neg (Neg) Urine Cocaine Screen Neg (Neg) U Cannabinoids Screen Neg (Neg) Serum Alcohol (0-5) mg/dL 03/14/18 03/14/18 Range/Units 09:03 09:03 WBC (4.0-11.0) th/mm3 RBC (4.50-5.90) mil/mm3 Hgb (13.0-17.0) gm/dL Hct (39.0-51.0) % MCV (80.0-100.0) fL MCH (27.0-34.0) pg MCHC (32.0-36.0) % RDW (11.6-17.2) % Plt Count (150-450) th/mm3 MPV (7.0-11.0) fL Sodium 141 (136-145) meq/L Potassium 3.6 (3.5-5.1) meq/L Chloride 109 H (98-107) meq/L Carbon Dioxide 24.5 (21.0-32.0) meq/L Anion Gap 8 (5-15) meq/L BUN 11 (7-18) mg/dL Creatinine 1.31 H (0.60-1.30) mg/dL Estimated GFR 76 L (>89) mL/min Random Glucose 85 (74-106) mg/dL Calcium 8.6 (8.5-10.1) mg/dL Total Bilirubin 0.7 (0.2-1.0) mg/dL AST 29 (15-37) U/L ALT 29 (12-78) U/L Alkaline Phosphatase 71 (45-117) U/L Total Protein 7.3 (6.4-8.2) g/dL Albumin 3.5 (3.4-5.0) g/dL Urine Color (Yellw/Straw) Urine Clarity (Clear) Urine pH (5.0-8.5) Ur Specific [place] (1.002-1.035) Urine Protein (Neg-Trace) mg/dL Urine Glucose (UA) (Negative) mg/dL Urine Ketones (Negative) mg/dL Urine Occult Blood (Negative) Urine Nitrate (Negative) Urine Bilirubin (Negative) Urine Urobilinogen (Less than 2) mg/dL Ur Leukocyte Esterase (Negative) Urine RBC (0-3) /hpf Urine WBC (0-5) /hpf Ur Squamous Epith Cells (0-5) /hpf Urine Mucus (Occasional) /lpf Micro UA Comment Ur Microscopic Review Urine Culture Comments Urine Opiates Screen (Neg) Ur Barbiturates Screen (Neg) Ur Amphetamines Screen (Neg) U Benzodiazepines Scrn (Neg) Urine Cocaine Screen (Neg) U Cannabinoids Screen (Neg) Serum Alcohol Less than 3 (0-5) mg/dL
[2018-03-14] MEDS: Sertraline 50 MG Tablet PO SCH (17:41)
[2018-03-14] MEDS: Mirtazapine 15 MG Tablet PO SCH (21:32)
[2018-03-15] MEDS: Sertraline 50 MG Tablet PO SCH (10:51)
[2018-03-15] MEDS ORDERED: Aluminum/Magnesium/Simethacone Susp 30 ML UDC PO PRN (11:28)
[2018-03-15] MEDS ORDERED: Acetaminophen 325 MG Tablet PO PRN (11:28)
[2018-03-15] MEDS: Mirtazapine 15 MG Tablet PO SCH (20:41)
[2018-03-16] MEDS: Sertraline 50 MG Tablet PO SCH (09:20)
--- NOTE | 2018-03-16 14:08 | P.HPPSY ---
Provisional Diagnosis Admission Date: March 15, 2018 11:34 Kelford I.: Bipolar disorder Competence Certification of Person's Competence To Provide Express and Informed Consent I have personally examined Teddy Pereira, a person being served at [facility] on, March 16, 2018 1355. Express and informed consent means consent voluntarily given in writing, by a competent person, after sufficient explanation and disclosure of the subject matter involved to enable the person to make a knowing and willful decision without any element of force, fraud, deceit, duress, or other form of constraint or coercion. This person is 18 years of age or older, is not now known to be incompetent to consent to treatment with a guardian advocate, and does not have a health care surrogate or proxy currently making medical treatment decisions. I have found this person to be one of the following: [] Competent to provide express and informed consent, as defined above, for voluntary admission to this facility and is competent to provide express and informed consent for treatment. He/she has the consistent capacity to make well reasoned, willful, and knowing decisions concerning his or her medical or mental health treatment. The person fully and consistently understands the purpose of the admission for examination/placement and is fully capable of personally exercising all rights assured [place] [] Incompetent to provide express and informed consent to voluntary admission, and this is incompetent to provide express and informed consent to treatment. The person must be transferred to involuntary status and a petition for a guardian advocate filed with the Circuit Court. [] Refusing to provide express and informed consent to voluntary admission but is competent to provide express and informed consent for treatment. The person must be discharged or transferred to involuntary status. Form shall be completed within 24 hours of a person's arrival at the receiving facility and filed in the clinical record of each person: 1. Admitted on a voluntary basis 2. Permitted to provide express and informed consent to his/her own treatment 3. Allowed to transfer from involuntary to voluntary status 4. Prior to permitting a person to consent to his or her own treatment after having been previously found incompetent to consent to treatment. History of Present Illness Capacity: Has capacity Chief Complaint: Suicidal ideas and intent with plan History of Present Illness: March 16, 2018 HPI: Patient is a 33-year-old black male who was seen following an alleged suicide attempt by stepping in front of a car. Injury seems to slight further to have been serious intent but the patient claims that he is hearing voices telling him to commit suicide. He admits amended this to say that it was may be the voices of his family suggesting suicide. If further complains of the need for benzodiazepines for his anxiety. The patient avoids telling me about his recent admission to this unit. He possibly old admits this because he was discharged for violence and aggressive behavior towards others during his last admission. The patient states that this time that he is discussed with the social sciences lecturer his need for bus ticket to [place] where he can join his family he is depressed being in this location and feels that if he is allowed a bus pass he will no longer be intent on suicide. Past history: Patient has a long history of psychiatric admissions in [place] as well as back in [place]. He has been on various medications but claims that he has not been on any medication for the past couple of weeks since his last discharge from another facility. He claims he was on Abilify 15 mg a day as well as Remeron 30 mg at bedtime. - Inpatient Certification I certify that the inpatient services were ordered in accordance with Medicare regulations governing the order. This includes certification that hospital inpatient services are reasonable and necessary and in the case of services not specified as inpatient-only under 42 CFR 419.22(n), that they are appropriately provided as inpatient services in accordance to with the 2-midnight benchmark under 43 CFR 412.3(e) I certify that inpatient psychiatric hospital services are medically necessary. Evaluation and treatment and/or diagnostic testing are expected to improve the patient's condition. The patient needs on a daily basis, active treatment furnished directly by or requiring the supervision of inpatient psychiatric facility personnel. Estimated Total Length of Stay (Days): 5 Plans for Post Hospital Care: Home [facility] - History History Provided By: Patient - Medical History Medical History: Medical History (Last Reviewed 03/10/18 @ 01:11 by KRISTYN Disla) Schizophrenia - Tobacco History Second Hand Smoke Exposure: No Tobacco Use In Past 30 Days: No Smoking Status: Current some day smoker Tobacco Type: Cigarettes - Alcohol History How Often Do You Have a Drink Containing Alcohol: Never - Substance Use History Substance History: No History of Abuse - Travel History Recent Travel in the USA Within the Last 8 Weeks: No Recent Travel Out of the Country Within the Last 8 Weeks: No - Immunization History Tetanus Immunization: <5 Years Tetanus Immunization Year if Known: 2017 Hx Influenza Vaccine This Season: No Medications and Allergies Active Medications: Active Medications Acetaminophen (Tylenol) 650 mg PO Q4H PRN PRN Reason: Pain 1-5 or Temp >101F Last Admin: 03/16/18 09:22 Dose: 650 mg Al Hydrox/Mg Hydrox/Simethicone (Mag-Al Plus Susp Liq) 30 ml PO Q6H PRN PRN Reason: DYSPEPSIA Al Hydroxide/Mg Hydroxide (Milk Of Magnesia Liq) 30 ml PO Q12H PRN PRN Reason: Mild Constipation Aripiprazole (Abilify) 15 mg PO HS [facility] Last Admin: 03/15/18 20:41 Dose: 15 mg Ibuprofen (Motrin) 800 mg PO Q8H PRN PRN Reason: PAIN SCALE 1 TO 10 Mirtazapine (Remeron) 30 mg PO HS [facility] Last Admin: 03/15/18 20:41 Dose: 30 mg Sertraline HCl (Zoloft) 25 mg PO DAILY [facility] Last Admin: 03/16/18 09:20 Dose: 25 mg Allergies Allergy/AdvReac Type Severity Reaction Status Date / Time No Known Allergies Allergy Verified 03/14/18 09:25 Home Medications Medication Instructions Recorded Confirmed Type aripiprazole [Abilify] 15 mg PO DAILY 03/14/18 03/14/18 History mirtazapine [Remeron] 30 mg PO DAILY NEB 03/14/18 03/14/18 History sertraline [Zoloft] 25 mg PO DAILY 03/14/18 03/14/18 History Results - Labs CBC & Chem 7: 03/14/18 09:03 03/14/18 09:03 Exam Vital signs: Vital Signs 03/15/18 16:29 03/16/18 06:00 03/16/18 10:00 Temperature 98.6 F 97.2 F L Pulse Rate 59 L 82 Respiratory Rate 18 18 16 Blood Pressure 85/49 L 103/53 L Pulse Oximetry 97 100 Intake & Output 03/15/18 03/16/18 03/16/18 18:59 06:59 18:59 Weight 95.7 kg Other: Weight On Admission 95.7 kg Mental Status Examination Appearance: Appropriate Consciousness: Alert Orientation: Person, Place, Situation Motor Activity: Normal gait Speech: Unremarkable Language: Adequate Fund of Knowledge: Adequate Attention and Concentration: Adequate Memory: Recent (intact), Remote (intact) Mood: Sad, Anxious Affect: Flat, Blunt Thought Process & Associations: Disorganized Thought Content: Hallucinations (auditory command hallucinations - has been off medications for two weeks ) Hallucination Type: Auditory Delusion Type: Paranoid Suicidal Ideation: Yes (plans to jump in front of a car) Suicidal Plan: Yes Homicidal Ideation: No Homicidal Plan: No Homicidal Intention: No Insight: Poor Judgment: Poor Assessment and Plan - Plan Plan: Estimated LOS: [] days March 16, 2018 Patient will be restarted on Abilify 15 mg and Remeron 30 mg. Since there appears to be some element of manipulativeness, using the hospitalization as a way of getting a bus ride home to [place], patient will be evaluated by the social sciences lecturer and patient given a bus pass to return home to [place] once it is determined that it is a safe to do so Justification for Continued Inpatient Stay: On March 16, 2018 The patient states that he is suicidal and hearing voices that command him to step in front of a car. This patient needs another brief period of time to evaluate the validity of this claim.
[2018-03-16 15:03] LABS: Carbon Dioxide 27.3 meq/L (21.0-32.0); Potassium 4.1 meq/L (3.5-5.1)
[2018-03-16 15:05] LABS: Chol/HDL Ratio 2.04 Ratio; HDL Cholesterol 63.1 mg/dL (40.0-60.0)
[2018-03-16] MEDS: Mirtazapine 15 MG Tablet PO SCH (20:32)
[2018-03-17] MEDS: Sertraline 50 MG Tablet PO SCH (08:25)
--- NOTE | 2018-03-17 13:08 | P.DSPSY ---
Psychiatry Discharge Summary Inpatient Psychiatric care?: Yes Advance Directives: No Mental Health Advance Directive: No Health Care Proxy: No - Admission Admission Date: March 15, 2018 11:34 Brief History: March 16, 2018 HPI: Patient is a 33-year-old black male who was seen following an alleged suicide attempt by stepping in front of a car. Injury seems to slight further to have been serious intent but the patient claims that he is hearing voices telling him to commit suicide. He admits amended this to say that it was may be the voices of his family suggesting suicide. If further complains of the need for benzodiazepines for his anxiety. The patient avoids telling me about his recent admission to this unit. He possibly old admits this because he was discharged for violence and aggressive behavior towards others during his last admission. The patient states that this time that he is discussed with the director of social services his need for bus ticket to [place] where he can join his family he is depressed being in this location and feels that if he is allowed a bus pass he will no longer be intent on suicide. Past history: Patient has a long history of psychiatric admissions in [place] as well as back in [place]. He has been on various medications but claims that he has not been on any medication for the past couple of weeks since his last discharge from another facility. He claims he was on Abilify 15 mg a day as well as Remeron 30 mg at bedtime. Tobacco Use In Past 30 Days: No How Often Do You Have a Drink Containing Alcohol: Never Hospital Course: March 17, 2018 Patient had been stay. His sole interest was getting a bus pass so that he could return to family and friends in [facility]. Patient apparently malingering and asking whether it was the first months. I spoke with discharge planning and efforts will be made to accommodate the patient wished this go home. It was interesting that he asked me the date before replying to whether or not he was still feeling suicidal. In my professional opinion the patient is simply looking for a place to stay until he receives his disability check. The patient's last day was marked by severe and violent behavior that resulted in his being discharged. The patient is shown none of this behavior at this times and seems to be in good control. He will be discharged with his medications based on his reports of his last admission which was 2 at the [address] floor the hospital. It is also noted the patient was extremely evasive about previous admissions. - Discharge Discharge Date: 03/17/18 Discharge Disposition: Home - Discharge Instructions Discharge Diet: Regular Diet Activities You Can Perform: Regular- No Restrictions - Discharge Time > 30 minutes Mental Status Examination Appearance: Appropriate Consciousness: Alert Orientation: Person, Place, Situation Motor Activity: Normal gait Speech: Unremarkable Language: Adequate Fund of Knowledge: Adequate Attention and Concentration: Adequate Memory: Recent (intact), Remote (intact) Mood: Sad, Anxious Affect: Flat, Blunt Thought Process & Associations: Disorganized Thought Content: Hallucinations (auditory command hallucinations - has been off medications for two weeks ) Hallucination Type: Auditory Delusion Type: Paranoid Suicidal Ideation: No (plans to jump in front of a car) Suicidal Plan: No Homicidal Ideation: No Homicidal Plan: No Homicidal Intention: No Insight: Poor Judgment: Poor Discharge/Advance Care Plan - Results Vital Signs: Last Vital Signs Temp 98.0 F 03/17/18 05:47 Pulse 46 L 03/17/18 05:47 Resp 18 03/17/18 05:47 BP 100/55 L 03/17/18 05:47 Pulse Ox 98 03/17/18 05:47 Lab Results: Abnormal Lab Results 03/16/18 14:10 Sodium 141 Potassium 4.1 Chloride 108 H Carbon Dioxide 27.3 Anion Gap 6 BUN 12 Creatinine 1.32 H Estimated GFR 75 L Random Glucose 90 Calcium 8.0 L Triglycerides 200 H Cholesterol 129 LDL Cholesterol, Calc 26 HDL Cholesterol 63.1 H Cholesterol/HDL Ratio 2.04 Laboratory Results Triglycerides 200 mg/dL (42-150) H 03/16/18 14:10 Cholesterol 129 mg/dL (120-200) 03/16/18 14:10 LDL Cholesterol, Calc 26 mg/dL (0-99) 03/16/18 14:10 HDL Cholesterol 63.1 mg/dL (40.0-60.0) H 03/16/18 14:10 Urine Culture Comments Culture not ind 03/14/18 08:55 Summary of Procedures: None Imaging: ITS Impressions Ankle X-Ray 03/14/18 09:42 CONCLUSION: No acute abnormality seen. Foot X-Ray 03/14/18 09:42 CONCLUSION: No acute abnormality is seen. Pending Results: None - Medications Number of antipsychotic medications at discharge: 1 - Discharge Care Plan Goals to Promote Your Health: * To prevent worsening of your condition and complications * To maintain your health at the optimal level Directions to Meet Your Goals: Take your medications as prescribed Follow your dietary instruction Follow activity as directed Keep your appointments as scheduled Take your immunizations and boosters as scheduled If your symptoms worsen call your PCP, if no PCP go to Urgent Care Center or Emergency Room For 13/10 questions related to your inpatient stay or results of tests pending at discharge, please contact Dr. Abdi Lopez MD at Smoking is Dangerous to Your Health. Avoid second hand smoking
[2018-03-17 17:27] LABS: Hemoglobin A1c 5.4 % (4.3-6.0)
== END 2018-03-17 12:10 | disposition home or self-care (01) ==
LOC: NEPJ 08:24 → NEDA 03-15 11:34 → H270 03-15 12:15
PROVIDERS: ADMIT Psychiatry & Neurology Child & Adolescent Psychiatry; ATTEND Psychiatry & Neurology Child & Adolescent Psychiatry